=== PATIENT | female | born 1990 | race Caucasian/White ===

== ENCOUNTER 2017-06-21 23:09 | Emergency (ER) | payer OTHER ==
[2017-06-22] MEDS ORDERED: Ibuprofen TAB* 600 MG PO ONE (00:39)
--- NOTE | 2017-06-22 00:42 | ED ---
Influenza-Like Illness - HPI Summary HPI Summary: 26-year-old female presents with fever today. She admits to fatigue and diarrhea. She denies any bowel pain nausea or vomiting. She admits to a dry cough. She denies any sore throat or sinus congestion. She denies any headache or neck stiffness. She took some nyquil at 5:00 states that it broke her fever. She has no medical conditions. She denies any chest pain or shortness of breath. - History of Current Complaint Chief Complaint: EDFluSymptoms Time Seen by Provider: 06/22/17 00:20 - Allergy/Home Medications Allergies/Adverse Reactions: Allergies Allergy/AdvReac Type Severity Reaction Status Date / Time No Known Allergies Allergy Verified 12/25/15 12:25 PMH/Surg Hx/FS Hx/Imm Hx Endocrine/Hematology History: Denies: Hx Diabetes, Hx Thyroid Disease Cardiovascular History: Denies: Hx Hypertension, Hx Pacemaker/ICD Respiratory History: Denies: Hx Asthma, Hx Chronic Obstructive Pulmonary Disease (COPD) GI History: Denies: Hx Ulcer History: Denies: Hx Renal Disease Sensory History: Denies: Hx Hearing Aid Psychiatric History: Denies: Hx Panic Disorder Infectious Disease History: No Infectious Disease History: Denies: Hx Clostridium Difficile, Hx Hepatitis, Hx Human Immunodeficiency Virus (HIV), Hx of Known/Suspected MRSA, Hx Shingles, Hx Tuberculosis, Hx Known/ Suspected VRE, Hx Known/Suspected VRSA, History Other Infectious Disease, Traveled Outside the [place] in Last 30 Days - Family History Known Family History: Positive: None Family History: no known family history of cardio, pulmonary or vascular disorders - Social History Alcohol Use: Occasionally Substance Use Type: Reports: None Smoking Status (MU): Never Smoked Tobacco Review of Systems Positive: Fever, Fatigue Positive: Nasal Discharge. Negative: Sore Throat Negative: Chest Pain Positive: Cough. Negative: Shortness Of Breath Negative: Abdominal Pain All Other Systems Reviewed And Are Negative: Yes Physical Exam Triage Information Reviewed: Yes Vital Signs On Initial Exam: Initial Vitals Temp Pulse Resp BP Pulse Ox 100.6 F 119 16 134/84 98 06/21/17 23:23 06/21/17 23:23 06/21/17 23:23 06/21/17 23:23 06/21/17 23:23 Vital Signs Reviewed: Yes Appearance: Positive: Ill-Appearing Skin: Positive: Warm, Dry Head/Face: Positive: Normal Head/Face Inspection Eyes: Positive: Normal, EOMI, JOHNATHON, Conjunctiva Clear ENT: Positive: Normal ENT inspection, Pharynx normal, TMs normal Neck: Positive: Supple, Nontender, No Lymphadenopathy Respiratory/Lung Sounds: Positive: Clear to Auscultation, Breath Sounds Present Cardiovascular: Positive: Normal, RRR Abdomen Description: Positive: Nontender, Soft Bowel Sounds: Positive: Present Musculoskeletal: Positive: Normal Neurological: Positive: Normal Psychiatric: Positive: Normal Diagnostics - Vital Signs Vital Signs Temp Pulse Resp BP Pulse Ox 06/21/17 23:23 100.6 F 119 16 134/84 98 - Laboratory Lab Statement: Any lab studies that have been ordered have been reviewed, and results considered in the medical decision making process. Flu Symptom Course/Dx - Course Course Of Treatment: 26-year-old female presents with fever today. She admits to fatigue and diarrhea. She denies any bowel pain nausea or vomiting. She admits to a dry cough. She denies any sore throat or sinus congestion. She denies any headache or neck stiffness. She took some nyquil at 5:00 states that it broke her fever. She has no medical conditions. She denies any chest pain or shortness of breath. on exam Lungs clear to auscultation abdomen soft nontender. flu positive. Will treat with Tamiflu. Encourage fluids and Tylenol and ibuprofen. Patient understands and agrees with plan. - Diagnoses Differential Diagnosis/HQI/PQRI: Positive: Bronchitis, Influenza, Upper Respiratory Infection Provider Diagnoses: Influenza B Discharge - Discharge Plan Condition: Good Disposition: HOME Prescriptions: Oseltamivir CAP* [Tamiflu CAP*] 75 mg PO BID #9 cap Patient Education Materials: Influenza (ED) Forms: *Work Release Referrals: Elisabeth VILLANUEVA,Rae Solomon [Primary Care Provider] - Additional Instructions: Take Tamiflu twice for 5 days first dose given in ED Take Tylenol and ibuprofen for muscle aches and fever every 6 hours Saline rinse can be used multiple times a day for nasal congestion Use humidifier in room or place bowls of warm water around room for cough Try to drink fluids every hour and eat a small snack every 3 hours Return to ED if develop any new or worsening symptoms
[2017-06-22] MEDS ORDERED: Oseltamivir CAP* 75 MG CAP PO ONE (00:51)
[2017-06-22 01:50] VITALS: BP 126/72
== END 2017-06-22 01:51 | disposition home or self-care (01) ==
LOC: ED 23:09
DX: J11.1 Influenza due to unidentified influenza virus with other respiratory manifestations (principal); R50.9 Fever, unspecified; R05 Cough
CPT/HCPCS: 87502; 99282; A9270-GY

== ENCOUNTER 2018-04-24 02:50 | Inpatient (IN) | payer OTHER ==
[2018-04-24] MEDS ORDERED: Penicillin G Potassium IV* 5,000,000 UNITS in NS 0.9% 100 ML* 100 ML IVPB ONE (03:16)
--- NOTE | 2018-04-24 03:31 | HP ---
General Information - Reason for Visit labor. Contractions started at 1930, now every 3 minutes - General Information Maternal Age: 27 Grav: 1 Para: 0 SAB: 0 IEA: 0 Estimated Due Date: 04/28/18 Determined By: LMP Gestational Age in Weeks/Days: 39w 3d Maternal Blood Type and Rh: A Positive - Results this Serology/RPR Result: Non-Reactive Rubella Result: Immune HBsAg Result: Negative HIV Result: Negative GBS Culture Result: Positive Past Medical History Pertinent Past Medical History: Non-Contributory Past Surgical History Comment: wisdom tooth extraction Family History Comment: pt adopted, FH unknown - Antepartal Records Antepartal Records: Reviewed, Complicated by: - GBS bacteriuria Review of Systems Constitutional: Uncomfortable CV Complaint: No Respiratory: Shortness of Breath: No Gastrointestinal: Nausea, Soft Stool Genitourinary: No Leaking Fluid Musculoskeletal: Back Pain, Contractions Neurological: No Visual Changes, Headache Movement: Normal Exam Allergies/Adverse Reactions: Allergies No Known Allergies Allergy (Verified 12/25/15 12:25) - Measurements Height: 5 ft 3 in Weight: 168 lb Body Mass Index (BMI): 29.7 Pre- Weight: 139 lb - Exam Breast: - - soft, no masses Extremities: Edema - trace Heart: Normal Rhythm/Heart Sounds HEENT: No Significant Findings Lungs: Clear Bilaterally Reflexes: DTR 2+ Thyroid: No Thyromegaly - Ultrasound/Biophysical Profile Ultrasound Status: Not Done Targeted Exam Findings Estimated Weight: 7 lbs Cervical Exam: 4cm Effacement: 100% Station: 0 Presenting Part: Vertex Membrane Status: Bulging EFM Findings - External Monitor Findings Baseline Heart Rate: 120 External Monitor Findings: Accelerations Present, No Pattern of Variable or Late Decelerations, Variability Moderate, Baseline Stable External Monitor Findings Comment: category 1 Contractions: Strong, 45-90 Seconds Contraction Frequency: every 2-3 minutes Assessment/Plan - Assessment primip at 39 w 3 days in active labor, wants epidural - Obstetrical Risk Factors Obstetrical Risk Factors: GBS Positive - Plan Plan: Admit - Anticipate Vaginal Delivery Plan Comment: will begin PCN prophylaxis - Date/Time of Admission Date of Admission: 04/24/18 Time of Admission: 03:15
[2018-04-24] MEDS ORDERED: OBEPIDURAL* 250 ML EPIDURAL ONE (03:35)
[2018-04-24 03:42] LABS: ABS Basophils 0 10^3/ul (0-0.2); ABS Eosinophils 0.1 10^3/ul (0-0.6); ABS Lymphocytes 2.9 10^3/ul (1.0-4.8); ABS Monocytes 0.6 10^3/ul (0-0.8); ABS Neutrophils 10.7 10^3/ul (1.5-7.7); ABS Nucleated RBC 0 10^3/ul; Eosinophil % 0.7 %; Hematocrit 36 % (35-47); Lymphocyte % 20.3 %; Mean Corpuscular HGB Conc 33 g/dl (31-36); Mean Corpuscular Hemoglobin 29 pg (27-31); Mean Corpuscular Volume 87 fL (80-97); Mean Platelet Volume 10.6 fL (7.4-10.4); Nucleated Red Blood Cells % 0; Platelet Count 282 10^3/ul (150-450); Red Blood Count 4.13 10^6/ul (4.00-5.40); Red Cell Distribution Width 13 % (10.5-15); White Blood Count 14.4 10^3/ul (3.5-10.8)
[2018-04-24] MEDS ORDERED: EPHEDrine (Pressors)* 50 MG/ML VIAL IV PUSH PRN (04:14)
[2018-04-24] MEDS ORDERED: Phenylephrine IV* 40 MCG/ML 10 ML SYRINGE IV PUSH PRN (04:14)
[2018-04-24] MEDS ORDERED: Famotidine TAB* 20 MG PO PRN (04:14)
[2018-04-24] MEDS ORDERED: Sodium Citrate/Citric Acid* 15 ML UDC PO PRN (04:14)
[2018-04-24] MEDS: Penicillin G Potassium IV* 2,500,000 UNITS in NS 0.9% 100 ML* 100 ML IVPB SCH ×2 (08:28→12:23)
[2018-04-24] MEDS ORDERED: fentaNYL* 50 MCG/ML 2 ML VIAL (100 MCG VIAL) ONE (08:55)
[2018-04-24] MEDS ORDERED: Lidocaine 1.5% EPI 1:200,000* 30 ML SDV ONE (08:56)
[2018-04-24] MEDS ORDERED: Oxytocin in LR* 20 UNITS/1,000 ML BAG IVPB SCH ×2 (11:00→15:00)
[2018-04-24] MEDS ORDERED: ceFOXitin 2 GM IVPREMIX* 2 GM/50 ML BAG IVPB ONE (13:03)
[2018-04-24] MEDS ORDERED: ceFOXitin 2 GM IVPREMIX* 2 GM/50 ML BAG ONE (13:07)
[2018-04-24] MEDS ORDERED: Sodium Citrate/Citric Acid* 15 ML UDC ONE (13:23)
[2018-04-24] MEDS ORDERED: Morphine PF AMP (0.5MG/ML)* 5 MG/10 ML AMP ONE (13:26)
[2018-04-24] MEDS ORDERED: Ondansetron INJ* 2 MG/ML VIAL ONE ×2 (14:00→14:19)
[2018-04-24] MEDS ORDERED: OXYTOCIN* 10 UNITS/ML 1 ML VIAL ONE (14:19)
[2018-04-24] MEDS ORDERED: Bupivacaine-MPF SPINAL* 7.5 MG/ML - 2ML AMP ONE (14:19)
[2018-04-24] MEDS ORDERED: Ondansetron INJ* 2 MG/ML VIAL IV PRN (14:21)
[2018-04-24] MEDS ORDERED: oxyCODONE/Acetamin 5/325 MG* TAB PO PRN (14:21)
[2018-04-24] MEDS ORDERED: Naloxone* 0.4 MG/ML 1 ML VIAL IV PRN ×2 (14:21)
[2018-04-24] MEDS ORDERED: Nalbuphine* 10 MG/ML 1 ML VIAL IV PRN (14:21)
[2018-04-24] MEDS ORDERED: Lidocaine 2% EPI 1:200000 MPF*10-20 ML VIAL ONE (14:23)
[2018-04-24] MEDS ORDERED: Sodium Bicarbonate 8.4% IV* 50 ML VIAL ONE (14:23)
[2018-04-24] MEDS ORDERED: Dibucaine 1% 28.35 GM TUBE PR PRN (14:39)
[2018-04-24] MEDS ORDERED: Zolpidem TAB* 5 MG PO PRN (14:39)
[2018-04-24] MEDS ORDERED: Witch Hazel PAD* JAR TOPICAL PRN (14:39)
[2018-04-24] MEDS ORDERED: Glycerin ADULT SUPP PR PRN (14:39)
[2018-04-24] MEDS ORDERED: Acetaminophen TAB* 325 MG PO PRN (14:39)
[2018-04-24] MEDS: Ketorolac INJ* 30 MG/ML 1 ML VIAL IV PRN ×2 (15:37→21:49)
[2018-04-24] MEDS: Simethicone TAB* 80 MG TAB.CHEW PO SCH ×2 (17:44→21:41)
[2018-04-24] MEDS: Docusate CAP* 100 MG PO SCH (21:41)
[2018-04-25] MEDS: Ketorolac INJ* 30 MG/ML 1 ML VIAL IV PRN ×2 (05:57→12:21)
[2018-04-25] MEDS: oxyCODONE/Acetamin 5/325 MG* TAB PO PRN ×4 (06:17→21:19)
[2018-04-25 06:49] LABS: ABS Basophils 0 10^3/ul (0-0.2); ABS Eosinophils 0.1 10^3/ul (0-0.6); ABS Lymphocytes 2.4 10^3/ul (1.0-4.8); ABS Monocytes 0.9 10^3/ul (0-0.8); ABS Neutrophils 10.6 10^3/ul (1.5-7.7); ABS Nucleated RBC 0 10^3/ul; Eosinophil % 0.7 %; Hematocrit 28 % (35-47); Hemoglobin 9.4 g/dl (12.0-16.0); Lymphocyte % 16.9 %; Mean Corpuscular HGB Conc 33 g/dl (31-36); Mean Corpuscular Hemoglobin 29 pg (27-31); Mean Corpuscular Volume 88 fL (80-97); Mean Platelet Volume 10.2 fL (7.4-10.4); Nucleated Red Blood Cells % 0.1; Platelet Count 212 10^3/ul (150-450); Red Blood Count 3.22 10^6/ul (4.00-5.40); Red Cell Distribution Width 13 % (10.5-15)
[2018-04-25] MEDS: Simethicone TAB* 80 MG TAB.CHEW PO SCH ×4 (08:26→21:18)
[2018-04-25] MEDS: Ferrous Gluconate TAB* 324 MG TAB PO SCH ×2 (08:26→21:18)
[2018-04-25] MEDS: Docusate CAP* 100 MG PO SCH ×3 (08:26→21:18)
--- NOTE | 2018-04-25 11:03 | OP ---
DATE OF OPERATION: 04/24/18 - ROOM #115 DATE OF : 89 SURGEON: Jose De Jesus Mcneal MD. FLAT CLOTHIER: Kristina Eastman CNM. ANESTHESIA: Epidural. PRE-OP DIAGNOSIS: Arrest of dilation. POST-OP DIAGNOSIS: Arrest of dilation. OPERATIVE PROCEDURE: Low transverse section. ESTIMATED BLOOD LOSS: 800 cc. COMPLICATIONS: None. FINDINGS: This is a 27-year-old who presented in labor, progressed to 6 cm and was augmented due to lack of progression, had adequate montevideo units and the decision was made to proceed with after 6 hours of no progress. At the time of she had a viable female, Apgars 9 and 9, weight was 6 pounds 8 ounces. Normal-appearing uterus, fallopian tube and ovaries. DESCRIPTION OF PROCEDURE: The patient identified, procedure identified as a low transverse section. The patient was taken to the operating room, prepped and draped in the usual fashion in the left lateral recumbent position under epidural anesthesia. A Pfannenstiel incision was made. The abdomen was carried down to fat, fascia, and peritoneum. A bladder flap was made via sharp and blunt dissection. A transverse incision was made in the lower uterine segment, extended laterally using blunt dissection. The above was delivered through the incision with ease. The cord was doubly clamped and cut. The was handed to the awaiting media manager. Cord blood was obtained. Placenta delivered spontaneously. The uterus was wiped out with a wet lap sponge. The uterine incision was then closed using 0-Polysorb in a running fashion. A second layer was used to imbricate the first layer. Good hemostasis was verified and achieved with the Bovie. The intraperitoneal was found to be hemostatic. The peritoneum was then closed using 3-0 Polysorb in a running fashion. Hemostasis see in the subrectus layers. The fascia was closed using 0-Polysorb in a running fashion. Hemostasis achieved in the subcu. Copious irrigation was utilized and suctioned out. The space was closed using 3-0 Vicryl in a simple fashion. Good hemostasis was achieved and skin was closed with 4-0 Monocryl in a subcuticular fashion. All sponge and instruments count were correct. The patient returned to the recovery room in stable condition. [id number]/[facility] #: [id number] [facility]
[2018-04-26] MEDS: oxyCODONE/Acetamin 5/325 MG* TAB PO PRN ×3 (06:03→20:44)
[2018-04-26] MEDS: Ibuprofen TAB* 600 MG PO PRN ×2 (08:14→16:56)
[2018-04-26] MEDS: Ferrous Gluconate TAB* 324 MG TAB PO SCH ×2 (08:15→20:40)
[2018-04-26] MEDS: Simethicone TAB* 80 MG TAB.CHEW PO SCH ×4 (08:15→20:40)
[2018-04-26] MEDS: Docusate CAP* 100 MG PO SCH ×3 (08:15→20:42)
[2018-04-26] MEDS: OBEPIDURAL* 250 ML EPIDURAL SCH ×2 (20:59→21:00)
[2018-04-27] MEDS: Ibuprofen TAB* 600 MG PO PRN ×2 (02:58→08:52)
[2018-04-27] MEDS: oxyCODONE/Acetamin 5/325 MG* TAB PO PRN ×2 (02:59→11:50)
[2018-04-27 07:59] VITALS: BP 127/78
[2018-04-27] MEDS: Simethicone TAB* 80 MG TAB.CHEW PO SCH ×2 (08:52→11:50)
[2018-04-27] MEDS: Docusate CAP* 100 MG PO SCH (08:52)
[2018-04-27] MEDS: Ferrous Gluconate TAB* 324 MG TAB PO SCH (08:52)
== END 2018-04-27 12:00 | disposition home or self-care (01) | DRG 788 ==
LOC: MCHOBOUT 02:50 → MCHOB 03:38
PROVIDERS: ADMIT Midwife; ATTEND Obstetrics & Gynecology
PROC: 10D00Z1 Extraction of Products of Conception, Low, Open Approach (ICD-10-PCS; principal; 2018-04-24)
DX: O62.0 Primary inadequate contractions (principal); O99.824 Streptococcus B carrier state complicating childbirth; O77.0 Labor and delivery complicated by meconium in amniotic fluid; O90.81 Anemia of the puerperium; D64.9 Anemia, unspecified; Z3A.39 39 weeks gestation of pregnancy; Z37.0 Single live birth
CPT/HCPCS: 36415; 85025; 86850; 86900; 86901; A9270-GY; J0694; J1885; J2405; J2540; J2590; J3010

== ENCOUNTER 2023-06-19 11:55 | Inpatient (IN) ==
[2023-06-19] MEDS ORDERED: Al Hydrox/Mg Hydrox/Simet LIQ 30 ML UDC PO PRN (21:11)
[2023-06-19 22:18] LABS: ABS Eosinophils 0.2 10^3/uL (0.0-0.5); ABS Lymphocytes 4.2 10^3/uL (1.0-4.8); ABS Monocytes 0.5 10^3/uL (0.0-0.9); ABS Neutrophils 2.7 10^3/uL (1.5-7.6); ABS Nucleated RBC 0.01 10^3/ul; Eosinophil % 3.2 %; Hematocrit 37.9 % (35-45); Lymphocyte % 54.4 %; Mean Corpuscular Hgb Conc 34.3 g/dL (31-36); Mean Corpuscular Volume 87.6 fL (80-97); Mean Platelet Volume 8.7 fL (7.5-11.2); Nucleated Red Blood Cells % 0.1 %/100WBC (0.0-0.8); Platelet Count 319 10^3/uL (150-450); Red Blood Count 4.32 10^6/uL (3.63-4.92); Red Cell Distribution Width 12.1 % (12-17); White Blood Count 7.8 10^3/uL (3.8-11.8)
[2023-06-19 22:38] LABS: ALT 14 U/L (7-52); AST 16 U/L (13-39); Albumin 4.2 g/dL (3.2-5.2); Albumin/Globulin Ratio 1.6 (1-3); Alkaline Phosphatase 37 U/L (35-149); Anion Gap 8 mmol/L (2-16); Blood Urea Nitrogen 20 mg/dL (6-24); CO2 Carbon Dioxide 30 mmol/L (22-32); Calcium 9.2 mg/dL (8.6-10.3); Chloride 102 mmol/L (101-111); Creatinine, Serum 0.89 mg/dL (0.51-0.95); Globulin 2.7 g/dL (2-4); Glucose 79 mg/dL (70-100); Potassium 3.8 mmol/L (3.5-5.0); Sodium 140 mmol/L (135-145); Total Bilirubin 0.5 mg/dL (0.2-1.0); Total Protein 6.9 g/dL (6.4-8.9); eGFR CKD-EPI 88.8 (>60)
[2023-06-19 22:41] LABS: Urine Appearance Cloudy; Urine Bilirubin Negative (Negative); Urine Blood Negative (Negative); Urine Color Straw; Urine Glucose Negative (Negative); Urine Ketones Negative (Negative); Urine Nitrite Negative (Negative); Urine Protein Negative (Negative); Urine Specific Gravity 1.009 (1.002-1.030); Urine Urobilinogen Negative (Negative)
[2023-06-19 22:42] LABS: Urine Benzodiazepine Screen None Detected (None Detect); Urine Cannabinoids Screen None Detected (None Detect); Urine Opiates Screen None Detected (None Detect)
[2023-06-19 22:45] LABS: HCG Pregnancy < 0.60 mIU/mL
[2023-06-19 23:19] LABS: Urine Bacteria Absent (Absent); Urine Red Blood Cell Absent (Absent); Urine Squamous Epithelial Cell Present (Absent); Urine White Blood Cell Trace(0-5/hpf) (Absent)
[2023-06-20 07:49] LABS: HDL Cholesterol 62.8 mg/dL
[2023-06-20] MEDS ORDERED: Influenza vaccine *QUAD* *2023-24* 0.5 ML SYRINGE IM ONE ×2 (09:00→18:00)
[2023-06-20] MEDS: Vitamin THERAPEUTIC TAB PO SCH (11:04)
[2023-06-20] MEDS: Miconazole TOPICAL CREAM 2% 30 GM TOPICAL SCH (19:00)
[2023-06-21] MEDS: Vitamin THERAPEUTIC TAB PO SCH (10:30)
[2023-06-21] MEDS: Miconazole TOPICAL CREAM 2% 30 GM TOPICAL SCH ×2 (10:30→21:30)
[2023-06-22] MEDS: Miconazole TOPICAL CREAM 2% 30 GM TOPICAL SCH ×2 (08:08→20:39)
[2023-06-22] MEDS: Vitamin THERAPEUTIC TAB PO SCH (08:08)
[2023-06-23] MEDS: Miconazole TOPICAL CREAM 2% 30 GM TOPICAL SCH ×2 (08:16→21:44)
[2023-06-23] MEDS: Vitamin THERAPEUTIC TAB PO SCH (08:16)
[2023-06-23] MEDS: CMC:Lactase Enzyme (NF) 3,000 UNIT TAB PO SCH (17:17)
[2023-06-24] MEDS: CMC:Lactase Enzyme (NF) 3,000 UNIT TAB PO SCH ×3 (08:08→19:09)
[2023-06-24] MEDS: Vitamin THERAPEUTIC TAB PO SCH (08:08)
[2023-06-24] MEDS: Miconazole TOPICAL CREAM 2% 30 GM TOPICAL SCH (11:25)
[2023-06-25] MEDS: Vitamin THERAPEUTIC TAB PO SCH (08:24)
[2023-06-25] MEDS: CMC:Lactase Enzyme (NF) 3,000 UNIT TAB PO SCH ×2 (08:24→11:11)
[2023-06-25 10:27] VITALS: BP 126/84
== END 2023-06-25 11:20 | disposition home or self-care (01) | DRG 885 ==
LOC: ED 11:55 → EDHOLD 21:11 → BSU 22:59
PROVIDERS: ADMIT Psychiatry & Neurology Psychiatry; ATTEND Psychiatry & Neurology Psychiatry